=== PATIENT | female | born 1940 | race Caucasian/White ===

== ENCOUNTER 2018-01-04 09:34 | Outpatient (CLI) | payer MEDICARE, BC ==
[2018-01-04] VITALS (18 sets, daily range): BP systolic 115–144; BP diastolic 60–89
[~2018-01-04 09:34] MED LIST: ESOM20CA PO; FENT-92 TD; GABA-534 PO; LEVO500T89 PO; LISI-600 PO; METR500T4 PO; NITR4.9S4; NORCO10T PO; RES15C PO; TIZA-248 PO
== END 2018-01-04 23:59 | disposition home or self-care (01) ==
LOC: CARD DIAG 09:34
PROVIDERS: ATTEND Physician Assistant
DX: R55 Syncope and collapse (principal)
CPT/HCPCS: 93660

== ENCOUNTER 2019-04-11 07:57 | Outpatient (CLI) | payer MEDICARE, BC ==
[2019-04-11] VITALS (12 sets, daily range): BP systolic 81–139; BP diastolic 48–81
[~2019-04-11 07:57] MED LIST changes: -FENT-92 TD; +FENT1PAT11 TD; +METR-159 PO; -METR500T4 PO
== END 2019-04-11 23:59 | disposition home or self-care (01) ==
LOC: CARD DIAG 07:57
PROVIDERS: ATTEND Internal Medicine Interventional Cardiology
DX: R55 Syncope and collapse (principal); I10 Essential (primary) hypertension; Z87.891 Personal history of nicotine dependence
CPT/HCPCS: 93660